=== PATIENT | female | born 1995 | race Caucasian/White ===

== ENCOUNTER 2017-10-06 16:06 | Emergency (ER) | payer OTHER, MEDICAID, SELFPAY ==
[2017-10-06 16:08] VITALS: BP 156/86; PULSE 86; PULSE 88; RESP 17; RESP 18; TEMP 36.4; O2SAT 97; O2SAT 98; BMI 28.3
--- NOTE | 2017-10-06 16:21 | US_ITS ---
STUDY: ULTRASOUND TRANSVAGINAL CLINICAL: Female, 21 years old. Abdominal and pelvic pain TECHNIQUE: Transvaginal COMPARISON: None. FINDINGS: Normal uterine size measuring 8.3 x 4.6 x 3.8 cm in maximal craniocaudal dimension. There are no myometrial masses. Normal endometrial thickness measuring 5.5 mm. There are no endometrial masses, and there is no fluid in the endometrial cavity. Normal uterine cervix. Normal right ovary, measuring 2.6 x 1.6 x 2.0 cm. There are multiple follicles without a dominant cyst. Normal left ovary, measuring 1.6 x 1.9 x 1.5 cm. There are multiple follicles without a dominant cyst. There is no free fluid in the pelvis. Polycystic ovary disease: No. US/Transvaginal Non- IMPRESSION: Normal appearance of the uterus and ovaries. Electronically Signed: Jered Herndon DO at 17:34 EDT Tel , Service support ,
--- NOTE | 2017-10-06 16:24 | ED.VISSUMM ---
- ER Visit Summary Date of Service: 10/06/17 Chief Complaint: Vaginal bleeding History of Present Illness: The patient is a 21 F presents with vaginal bleeding which started this afternoon. She states she has not had a period in 2 months. She has been nauseated with no vomiting. She is . She took a home test that was negative. She states she passed clots and what she believed to be tissue and was concerned that she was having a miscarriage. Denies other complaints. Physical Examination: Vitals are stable. Patient is afebrile. Alert no acute distress. HEENT exam is unremarkable. Neck is supple. Lungs are clear and equal bilaterally. Heart is regular rate and rhythm. Abdomen is soft nontender nondistended. No guarding or rebound Pelvic: Small amount of blood in vaginal vault. Cervix is closed. No adnexal tenderness Extremities are unremarkable. Skin is warm and dry. No focal neurologic deficit. Remainder of exam is unremarkable. Emergency Department Course and Treatment: HCG quant less than 1. Blood type O+. Pelvic ultrasound shows normal appearance of the uterus and ovaries. Patient is advised to follow-up with her [facility]. Advised return to ED for worsening complaints. Disposition: Discharge home Impression: Irregular vaginal bleeding This note was generated with [employer] dictation software. It may contain incorrect words, spelling, and punctuation that were not noted in review of the chart prior to signing ED Disposition - Plan for ED Patient: Chief Complaint: Vag Bleeding Instructions: ED Bleed Irregular Vaginal Referrals: Tucker Majano DO [Primary Care Provider] -
[2017-10-06 17:01] LABS: hCG Titer Quant., Serum < 1 mIU/mL (<9 non-preg)
--- NOTE | 2017-10-06 17:59 | ED.DEP ---
ED Disposition - Plan for ED Patient: Chief Complaint: Vag Bleeding Instructions: ED Bleed Irregular Vaginal Referrals: Tucker Majano DO [Primary Care Provider] -
[2017-10-06 18:26] VITALS: BP 110/63; PULSE 72; RESP 18; O2SAT 99
== END 2017-10-06 18:27 | disposition home or self-care (01) ==
LOC: ED 17:09
PROVIDERS: Emergency Provider Emergency Medicine; Family Provider Student in an Organized Health Care Education/Training Program; PCP Student in an Organized Health Care Education/Training Program
DX: N93.9 Abnormal uterine and vaginal bleeding, unspecified (principal)
CPT/HCPCS: 76830; 84702; 86900; 86901; 93976; 99282; A4216

== ENCOUNTER → 2017-12-08 15:08 | Outpatient (CLI) | payer MEDICAID, SELFPAY ==
[2017-12-08 16:30] LABS: hCG Titer Quant., Serum 800 mIU/mL (<9 non-preg)
[2017-12-08 17:32] LABS: Chlamydia Trachomatis by PCR Negative (Negative); Neisserai gonorrhoeae by PCR Negative (Negative); Probe Check PASS; Sample Adequacy Control PASS; Specimen Processing Control PASS
[2017-12-21 13:28] LABS: HPV Reflexed? NOT INDICATED
== END ==
PROVIDERS: Visit Provider Obstetrics & Gynecology
DX: Z32.01 Encounter for pregnancy test, result positive (principal); Z12.4 Encounter for screening for malignant neoplasm of cervix; Z11.3 Encounter for screening for infections with a predominantly sexual mode of transmission
CPT/HCPCS: 36415; 84702; 87491; 87591; 88175; G0145

== ENCOUNTER → 2017-12-11 15:30 | Outpatient (CLI) | payer MEDICAID, SELFPAY ==
--- NOTE | 2017-12-11 15:30 | DT_ITS ---
This patient was seen during an EMR downtime December 11, 2017 - December 18, 2017. This patient may have a combination of paper and electronic documentation or all paper documentation. All documentation is viewable within the e-chart portion of [facility] for each patient visit.
[2017-12-17 03:06] LABS: hCG Titer Quant., Serum 2478 mIU/mL (<9 non-preg)
== END ==
PROVIDERS: Family Provider Student in an Organized Health Care Education/Training Program; PCP Student in an Organized Health Care Education/Training Program; Visit Provider Obstetrics & Gynecology
DX: Z32.01 Encounter for pregnancy test, result positive (principal)
CPT/HCPCS: 36415; 84702

== ENCOUNTER → 2017-12-26 16:17 | Outpatient (CLI) | payer MEDICAID, SELFPAY ==
[2017-12-26 17:18] LABS: Color, Urine Yellow (Yellow); Glucose, Dipstick Normal (Normal); Ketone-Dipstick Negative (Negative); Leukocyte Esterase-Dipstick 25 /ul (Negative); Nitrite-Dipstick Negative (Negative); Occult Blood-Urine 25 /ul (Negative); Protein-Dipstick Negative (Negative); Specific Gravity, Urine 1.025 (1.002-1.030); Urine Bilirubin Dipstick Negative (Negative); Urine Clarity Clear (Clear); Urine Urobilinogen Normal (Normal)
[2017-12-26 17:19] LABS: Absolute Lymphocyte Count 1.97 X10^3/ul (0.83-4.51); Absolute Neutrophil Count 8.6 X10^3/uL (2.0-7.7); Basophil# 0.02 X10^3/uL; Basophil% 0.2 % (0-1); Eosinophil# 0.05 X10^3/uL; Eosinophils% 0.4 % (0-5); Hematocrit 37.7 % (37-47); Hemoglobin 12.6 g/dl (12.0-15.0); Lymphocyte # 1.97 X10^3/ul (4.0); Lymphocyte % 16.9 % (19-41); Mean Corp Hgb Conc 33.4 g/gl (32-36); Mean Corpuscular Hgb 29.8 pg (27.0-32.0); Mean Corpuscular Volume 89.1 fL (81-99); Mean Platelet Vol. 9.9 fl (6.2-12.0); Monocyte# 1.01 X10^3/uL; Monocyte% 8.7 % (0-10); Neutrophil # 8.59 X10^3/uL (2.7-7.7); Neutrophil % 73.6 % (47-70); Platelet Count 290 K/mm3 (150-450); RBC Distribution Width CV 12.5 % (11.6-14.6); Red Blood Count 4.23 M/mm3 (4.2-5.4); White Blood Count 11.7 K/mm3 (4.4-11.0)
[2017-12-26 17:20] LABS: POSITIVE COUNT NO; POSITIVE DIFFERENTIAL NO; POSITIVE MORPHOLOGY NO
[2017-12-26 17:39] LABS: Amphetamine Urine VISTA NEGATIVE (<1000 ng/mL); Barbiturate Urine VISTA NEGATIVE (< 200 ng/mL); Benzodiazepine Urine VISTA NEGATIVE (< 200 ng/mL); Cocaine Urine VISTA NEGATIVE (< 300 ng/mL); Ecstacy Urine VISTA NEGATIVE (< 500 ng/mL); Methadone Urine VISTA NEGATIVE (< 300 ng/mL); PCP Urine VISTA NEGATIVE (< 25 ng/mL); THC Urine VISTA NEGATIVE (< 50 ng/mL); Vista UDS pH Range 6
[2017-12-26 17:43] LABS: COTININE Drug Screen Negative (<200 ng/mL)
[2017-12-26 18:02] LABS: Thyroid Stim Hormone (TSH) 0.71 uIU/mL (0.358-3.74)
[2017-12-27 09:49] LABS: HIV - WCH Non-Reactive (Nonreactive); Rubella IgG 73.7 IU/mL
[2017-12-29 03:47] LABS: Prenatal RPR NONREACTIVE (NONREACTIVE)
[2017-12-29 11:23] LABS: HEPATITIS B SURFACE AG Negative (Negative); Hep C Antibodies <0.1 s/co ratio (0.0-0.9); V-Zoster IgG (Immunity) 1273 index (Immune >165)
== END ==
PROVIDERS: Visit Provider Obstetrics & Gynecology
DX: Z34.81 Encounter for supervision of other normal pregnancy, first trimester (principal)
CPT/HCPCS: 36415; 80307; 81002; 84443; 85025; 86703; 86762; 86787; 86803; 87340

== ENCOUNTER → 2018-01-30 18:31 | Outpatient (CLI) | payer OTHER, MEDICAID, SELFPAY | PROVIDERS: Family Provider Student in an Organized Health Care Education/Training Program; Visit Provider Obstetrics & Gynecology | DX: N39.0 Urinary tract infection, site not specified (principal) | CPT/HCPCS: 87086; 87088; 87186 ==

== ENCOUNTER → 2018-07-19 11:56 | Outpatient (CLI) | payer OTHER, MEDICAID, SELFPAY | PROVIDERS: Family Provider Student in an Organized Health Care Education/Training Program; PCP Student in an Organized Health Care Education/Training Program; Visit Provider Obstetrics & Gynecology | DX: Z36.85 Encounter for antenatal screening for Streptococcus B (principal) | CPT/HCPCS: 87081 ==

== ENCOUNTER 2018-08-06 10:00 | Inpatient (IN) | payer OTHER, MEDICAID, SELFPAY ==
[2018-08-06] VITALS (19 sets, daily range): BP systolic 96–122; BP diastolic 45–71; PULSE 54–77; RESP 12–18; TEMP 36.1–37; O2SAT 97–100; BMI 34.2
[2018-08-06] MEDS: Lactated Ringers 1,000 ML 999 ML IV (10:30)
[2018-08-06 10:50] LABS: Absolute Lymphocyte Count 1.94 X10^3/ul (0.83-4.51); Absolute Neutrophil Count 7.4 X10^3/uL (2.0-7.7); Basophil# 0.01 X10^3/uL; Basophil% 0.1 % (0-1); Eosinophil# 0.07 X10^3/uL; Eosinophils% 0.7 % (0-5); Hematocrit 35.8 % (37-47); Hemoglobin 11.5 g/dl (12.0-15.0); Lymphocyte # 1.94 X10^3/ul (4.0); Lymphocyte % 18.7 % (19-41); Mean Corp Hgb Conc 32.1 g/gl (32-36); Mean Corpuscular Hgb 30.4 pg (27.0-32.0); Mean Corpuscular Volume 94.7 fL (81-99); Mean Platelet Vol. 10.1 fl (6.2-12.0); Monocyte# 0.92 X10^3/uL; Monocyte% 8.9 % (0-10); Neutrophil # 7.39 X10^3/uL (2.7-7.7); Neutrophil % 71.2 % (47-70); Platelet Count 216 K/mm3 (150-450); RBC Distribution Width CV 15.1 % (11.6-14.6); RBC Distribution Width SD 52.3 fl (35.1-43.9); Red Blood Count 3.78 M/mm3 (4.2-5.4); White Blood Count 10.4 K/mm3 (4.4-11.0)
[2018-08-06 10:51] LABS: POSITIVE COUNT NO; POSITIVE DIFFERENTIAL NO; POSITIVE MORPHOLOGY NO
[2018-08-06 11:02] LABS: Prothrombin Time (Protime)PT. 12.9 SECONDS (11.7-14.9)
[2018-08-06 11:03] LABS: Partial Thromboplast Time 29.1 Seconds (24.1-36.2)
--- NOTE | 2018-08-06 11:53 | OP.PCM_ITS ---
Delivery Classification: Scheduled Final ELIZABETH: 08/13/18 Final ELIZABETH Source: US <20 weeks Gestational age: 39 Weeks and 1 Days Indications for : Repeat Elective Description of Procedure: Delivery of a live female weighing [id number]. kiwi was used to assist delivery. Normal appearing uterus, ovaries, and fallopian tubes. Amniotic fluid clear. Placenta appeared normal. Minimal scarring. Amniotic Membrane Rupture Type: Artificial Amniotic Fluid Description: Clear Placenta Disposition: [facility] Specimen(s) sent to pathology: cord blood Drain: Reyna to straight drain Fluids Replaced: 1000cc LR Cord Entanglement: None Nuchal Cord Compression: Without compression Cord Vessel Description: 3 Vessels Esitmated Blood Loss (ml): 400cc Infant Gender: Female (1 minute): 9 (5 minute): 9 Delayed cord clamping: Yes Pre-op Antibiotic Given: Ancef 2 grams IV x1 Pt instructed on risks of surgery: Bleeding, Infection, Need for Future C- Sections, Injury to surrounding structure(s) including bowel and bladder Complications: None - Admit VTE Documentation VTE Present on Admission: No VTE Mechan Device Prophylaxis: SCD's VTE Pharm Prophylaxis ordered?: No
[2018-08-06] MEDS: Sodium Citrate/Citric Acid 30 ML UDC PO (11:55)
--- NOTE | 2018-08-06 11:55 | OP.PCM_ITS ---
Report of Operation Date of Procedure: 08/06/18 Pre-Operative Diagnosis: Previous Section at 39 weeks EGA Post-Operative Diagnosis: Same Surgery/Procedure Performed:: Repeat Low Transverse Section Description of Surgical Findings:: Delivery of live female weighing [id number]. Apgars 9/9. Placenta appeared normal. Amniotic fluid clear. Normal appearing uterus, ovaries, and fallopian tubes. Minimal scarring. Lower uterine segment noted to be extremely thin. Type of Anesthesia:: Spinal Anesthesiologist: Dm Sy Special Medications: none Specimen's removed: cord blood Drains: reis to SD Estimated Blood Loss (mL): 400cc Fluids Replaced: 1000cc LR Description of Procedure: Meghann was taklen to the OR with IV running. SHe was given two grams of Cefotetan intravenously for surgical prophylaxis. SPinal anesthesia was introduced without complication. A reis catheter was then placed. She was then prepped and draped in the supine position with a leftward tilt. Anesthesia was checked and found to be adequate. A Pfannensteil skin incision was then made over the previous lower abdominal scar. The underlying subcutaneous tissue was dissected sharply down to the level of the fascia. The fascia was then incised horizontally in the midline. This incision was extended bilaterally with the Daley scissors. The upper portion of the fascial defect was then grasped with two Denisse clamps, elevated, and the rectus muscles were dissected off with blunt and sharp dissection. In a similar fashion the fascia was dissected off the lower portion of the fascial defect. The rectus muscles were then in the midline, the peritoneum identified and entered sharply. The peritoneal defect was enlarged with blunt retraction. A bladder blade was then placed. A bladder flap was then created and the bladder blade replaced. The lower uterine segment was then incised in a transverse fashion. Once the cavity was entered the uterine defect was enlarged using blunt lateral and superior traction. The membranes were then ruptured. The baby's head was then brought to the incision a Kiwi device placed and using gentle traction the head was delivered followed by the body. Delayed cord clamping was employed. The baby was dried and the mouth suctioned with a bulb suction. There was an active cry shortly after delivery. The cord was then clamped and cut and the baby handed off to the waiting nurse for evaluation. The placenta was delivered manually. The uterus was exteriorized and cleared of all clot and membranes. The uterine defect was repaired in two layers with #1 Vicryl. The posterior cul de sac and gutters were cleared of all clot and fluid. The uterus was returned to the abdomen, the uterine incision was inspected and found to be hemostatic. The peritoneum was closed with a running stitch of 2-0 vicryl. The rectus muscles were reapproximated with interrupted sutures of 0-Vicryl. The fascia was closed with a running stitch of #1 Stratofix suture. The subcut aneous tissue was closed with a runing stitch of 2-0 Vicryl. The skin was closed with a subcuticular stitch of 4-0 Monocryl. Sponge, lap, needle, and sintrument counts were correct. SHe was taken to her recovery room in stable condition. Grafts/Implants Used: none - Complications none - Admit VTE Documentation VTE Present on Admission: No VTE Mechan Device Prophylaxis: SCD's VTE Pharm Prophylaxis ordered?: No
[2018-08-06] MEDS: Cefazolin 2 GM in 0.9% Normal Saline 100 ML IV (12:07)
[2018-08-06] MEDS: Lactated Ringers 1,000 ML 150 ML IV (12:20)
[2018-08-06] MEDS: Oxytocin 30 units/NS 500 ml 30 UNITS/500 ML IV.SOLN 167 UNITS IV (12:25)
[2018-08-06] MEDS: Ondansetron 4 MG/2 ML Vial IV (12:35)
[2018-08-06] MEDS: Ketorolac 30 MG/ML Syringe IV ×3 (12:45→23:50)
[2018-08-06] MEDS: Lactated Ringers 1,000 ML 100 ML IV ×2 (13:15→17:49)
[2018-08-06] MEDS: Nalbuphine 10 MG/ML Ampul 5 MG IV (14:20)
[2018-08-06] MEDS: Ferrous Gluconate 324 MG Tablet PO (17:49)
[2018-08-06] MEDS: Naloxone 0.4 MG/ML Syringe 0.2 MG IV ×2 (18:27→20:44)
[2018-08-06] MEDS: Cefazolin 1 GM/50 ML BAG IV (19:47)
--- NOTE | 2018-08-06 20:00 | NURSING ---
2000: Patient's pulse ox alarm went off. RN entered room and patient was awake with O2 sat at 100% on room air. Patient's family stated she had fallen asleep when alarm went off and that O2 sat read 70%. 2L of of oxygen applied via nasal cunnula. 2019: Patient asleep and pulse ox 100% on 2L, respirations 16 while asleep.
[2018-08-07] VITALS (10 sets, daily range): BP systolic 96–122; BP diastolic 49–70; PULSE 58–80; RESP 15–18; TEMP 36.2–36.7; O2SAT 97–100
--- NOTE | 2018-08-07 01:43 | NURSING ---
Patient passed clot approximately the size of a flat tennis ball. No other bleeding or trickling at this time. Fundus remains firm and -2. Patient asymptomatic, will continue to monitor.
[2018-08-07] MEDS: Cefazolin 1 GM/50 ML BAG IV (03:23)
[2018-08-07] MEDS: Lactated Ringers 1,000 ML 100 ML IV (03:24)
[2018-08-07] MEDS: Ketorolac 30 MG/ML Syringe IV ×4 (05:25→23:55)
[2018-08-07 05:44] LABS: Hematocrit 32.3 % (37-47); Hemoglobin 10.6 g/dl (12.0-15.0); Mean Corp Hgb Conc 32.8 g/gl (32-36); Mean Corpuscular Hgb 31.4 pg (27.0-32.0); Mean Corpuscular Volume 95.6 fL (81-99); Platelet Count 204 K/mm3 (150-450); RBC Distribution Width CV 14.8 % (11.6-14.6); RBC Distribution Width SD 48.2 fl (35.1-43.9); Red Blood Count 3.38 M/mm3 (4.2-5.4); White Blood Count 9.7 K/mm3 (4.4-11.0)
[2018-08-07 05:53] LABS: Scan Indicated on CBC? Y/N NO
[2018-08-07] MEDS: Ferrous Gluconate 324 MG Tablet PO ×2 (09:35→17:56)
--- NOTE | 2018-08-07 09:42 | DCINST_ITS ---
Discharge Diet: No Restrictions Discharge Activity: Return to Normal Activity, May Not Drive, May not drive while taking narcotic pain medications., May Shower Return to work on:: 10/05/18 May shower in (days): 0 May resume sexual activity in: 4-6 weeks Call your doctor if your incision/area has: Sudden Increased Bleeding, Increased Pain/ Swelling, Increased Redness, Foul Smelling Discharge, Swelling at the incision site Call your doctor if you observe: Fever of 101 or Higher, Inability to urinate, Inability to have a bowel movement, Using more than one pad per hour, Shortness of breath, Chest pain, Calf discomfort, Uncontrolled pain Remove Dressing in (days):: 3 Cleanse incision/area with: Soap & Water Additional Instructions: If you experience any of the following, contact your healthcare provider. * Bleeding that soaks a pad every hour for 2 hours * Fever 100.4 or higher * Unrelieved incision or abdominal pain * Swelling, redness, discharge or bleeding from your incision or episiotomy site * Your incision begins to separate * Problems urinating (including inability to urinate or burning while uri nating). * Visual changes * Severe headache * Flu-like symptoms * Pain or redness in one of both of your breasts * Pain, warmth, tenderness or swelling in your legs, especially the calf area * Frequent nausea and vomiting * Symptoms of depression or anxiety If you experience any of the following, call 911 or go to the nearest Emergency Room. * Chest pain * Problems breathing * Seizure activity * Partial or complete paralysis of a body part, slurred speech, weakness or drooping of the face, or a sudden inability to walk or hold your balance Allergies/Adverse Reactions: Allergies sulfamethoxazole [From Bactrim] Allergy (Verified 08/06/18 10:18) Rash trimethoprim [From Bactrim] Allergy (Verified 08/06/18 10:18) Rash Medications to take at Discharge Ferrous Gluconate 325 mg PO BIDCM 08/06/18 Pantoprazole Sodium [Protonix] 40 mg PO DAILY 08/06/18 Vit No.130/Iron/Folic [ Tablet] 1 each PO 08/06/18 Ibuprofen [Motrin] 600 mg PO Q6H PRN PRN #30 tab 08/07/18 Oxycodone [Oxyir] 5 - 10 mg PO Q4H PRN PRN 7 Days #28 tab 08/07/18 The following prescriptions were given: Oxycodone [Oxyir] 5 - 10 mg PO Q4H PRN PRN 7 Days #28 tab PRN Reason: Mod-Severe Pain (-04/18) Ibuprofen [Motrin] 600 mg PO Q6H PRN PRN #30 tab PRN Reason: pain or cramping Follow-Up: Call to make an appointment with your doctor for an incision check in 1-2 weeks. You will also need a 6 week post- follow up appointment. Test results from this visit will be discussed in further detail at your follow- up appointment, if applicable. Please Follow Up With: Pawel Figueroa MD When: 2 weeks Primary Care Physician: Tucker Majano DO [Primary Care Provider] - Proposed Discharge Date: 08/08/18
--- NOTE | 2018-08-07 09:54 | PCM.PN.OB ---
Subjective: No specific complaints. Bleeding light. Pain well controlled. Objective: Afeb VSS Urine output appropriate. Hgb stable - Physical Exam General: Alert, Oriented x3, Cooperative, No apparent distress Lungs: Clear to auscultation, Normal air movement Cardiovascular: Regular rate, Regular Rhythm Abdomen: Soft, Non Tender, Non-Distended, - - Fundus firm, incision dressing dry Extremities: No edema Skin: No rashes Neurological: Neuro grossly intact Psych/Mental Status: Normal Affect Comment: Lochia appropriate Vital Signs Temp Pulse Resp BP Pulse Ox 97.1 F L 66 15 106/51 L 100 08/07/18 09:28 08/07/18 09:28 08/07/18 09:28 08/07/18 09:28 08/07/18 07:28 Oxygen Flow Rate (L/min) 2 Oxygen Delivery Method Room Air Weight: 212 lb Body Mass Index (BMI) 34.2 Intake and Output for Last 24 Hours 08/05/18 08/06/18 08/07/18 23:59 23:59 23:59 Intake Total 5300 / 5300 1200 / 1200 Output Total 2125 / 2125 1500 / 1500 Balance 3175 / 3175 -300 / -300 Laboratory Tests Past 24 Hrs 08/06/18 08/06/18 08/06/18 10:30 10:30 10:30 WBC 10.4 RBC 3.78 L Hgb 11.5 L Hct 35.8 L MCV 94.7 MCH 30.4 MCHC 32.1 RDW 15.1 H RDW Differential 52.3 H Plt Count 216 MPV 10.1 Immature Gran % (Auto) 0.400 Neut % (Auto) 71.2 H Lymph % (Auto) 18.7 L [place] % (Auto) 8.9 Eos % (Auto) 0.7 Baso % (Auto) 0.1 Absolute Neuts (auto) 7.4 Absolute Lymphs (auto) 1.94 Total Counted Not Reportable PT 12.9 INR 1.0 APTT 29.1 Blood Type O POSITIVE Antibody Screen NEGATIVE 08/07/18 05:30 WBC 9.7 RBC 3.38 L Hgb 10.6 L Hct 32.3 L MCV 95.6 MCH 31.4 MCHC 32.8 RDW 14.8 H RDW Differential 48.2 H Plt Count 204 MPV 10.0 Immature Gran % (Auto) Neut % (Auto) Lymph % (Auto) [place] % (Auto) Eos % (Auto) Baso % (Auto) Absolute Neuts (auto) Absolute Lymphs (auto) Total Counted PT INR APTT Blood Type Antibody Screen Medical Necessity - Tobacco Use Smoking Status: Never smoker Assessment/Plan Doing well on POD#1. Continue routine PO care. Removed reis catheter at noon.
[2018-08-07] MEDS: Prenatal Vits Tablet 1 TABLET PO (11:53)
[2018-08-07] MEDS: Senna/Docusate Sodium 1 Tablet PO (14:54)
[2018-08-07] MEDS: oxyCODONE 5 MG Tablet PO (14:55)
[2018-08-07] MEDS: 0.9% Saline Lock 10 ML Syringe IV ×3 (17:57→23:55)
[2018-08-08] MEDS: oxyCODONE 5 MG Tablet PO ×3 (02:50→22:25)
[2018-08-08 02:52] VITALS: BP 99/52; PULSE 76; RESP 18; TEMP 36.2; O2SAT 95
[2018-08-08] MEDS: Ketorolac 30 MG/ML Syringe IV (06:10)
[2018-08-08] MEDS: 0.9% Saline Lock 10 ML Syringe IV (06:10)
[2018-08-08] MEDS: Senna/Docusate Sodium 1 Tablet PO (06:10)
--- NOTE | 2018-08-08 08:27 | PCM.PN.OB ---
Subjective: No specific complaints. Pain well controlled with PO medications. Bleeding light. Breast feeding. Objective: AFeb VSS - Physical Exam General: Alert, Oriented x3, Cooperative, No apparent distress Lungs: Clear to auscultation, Normal air movement Cardiovascular: Regular rate, Regular Rhythm Abdomen: Soft, Non Tender, Non-Distended, - - Fundus firm nontender, Incision dressing dry. Extremities: No edema Neurological: Neuro grossly intact Psych/Mental Status: Normal Affect Comment: Lochia light Vital Signs Temp Pulse Resp BP Pulse Ox 97.2 F L 76 18 99/52 L 95 08/08/18 02:52 08/08/18 02:52 08/08/18 02:52 08/08/18 02:52 08/08/18 02:52 Oxygen Flow Rate (L/min) 2 Oxygen Delivery Method Room Air Weight: 212 lb Body Mass Index (BMI) 34.2 Intake and Output for Last 24 Hours 08/06/18 08/07/18 08/08/18 23:59 23:59 23:59 Intake Total 5300 / 5300 2693 / 2693 Output Total 2125 / 2125 2800 / 2800 Balance 3175 / 3175 -107 / -107 Medical Necessity - Tobacco Use Smoking Status: Never smoker Assessment/Plan Doing well on POD#2. Continue routine PO care. Baby currently under UV lights for elevated bilirubin. Will consider discharge home if baby's bilirubin levels improve.
[2018-08-08 09:10] VITALS: BP 106/61; PULSE 85; RESP 20; TEMP 36.6; O2SAT 95
[2018-08-08] MEDS: Pantoprazole Sodium 40 MG Tablet PO (09:41)
[2018-08-08] MEDS: Ferrous Gluconate 324 MG Tablet PO ×2 (09:41→16:58)
[2018-08-08] MEDS: Ibuprofen 600 MG Tablet PO ×2 (11:10→20:15)
[2018-08-08] MEDS: Prenatal Vits Tablet 1 TABLET PO (12:44)
[2018-08-08 14:15] VITALS: BP 120/69; PULSE 86; TEMP 36.6; O2SAT 97
[2018-08-08 20:15] VITALS: BP 128/69; PULSE 79; RESP 16; TEMP 36.6; O2SAT 97
[2018-08-09 02:18] VITALS: BP 111/60; PULSE 61; RESP 16; TEMP 37; O2SAT 97
[2018-08-09 08:20] VITALS: BP 112/68; PULSE 69; RESP 16; TEMP 36.4
--- NOTE | 2018-08-09 08:27 | PCM.PN.OB ---
Subjective: No specific complaints. Pain reasonably controlled. Bleeding light. Breast feeding. Objective: Afeb VSS - Physical Exam General: Alert, Oriented x3, Cooperative, No apparent distress Lungs: Clear to auscultation, Normal air movement Cardiovascular: Regular rate, Regular Rhythm Abdomen: Soft, Non Tender, Non-Distended, - - Incision dressing dry Extremities: No edema Skin: No rashes Neurological: Neuro grossly intact Psych/Mental Status: Normal Affect Comment: Lochia light Vital Signs Temp Pulse Resp BP Pulse Ox 98.6 F 61 16 111/60 97 08/09/18 02:18 08/09/18 02:18 08/09/18 02:18 08/09/18 02:18 08/09/18 02:18 Oxygen Flow Rate (L/min) 2 Oxygen Delivery Method Room Air Weight: 212 lb Body Mass Index (BMI) 34.2 Intake and Output for Last 24 Hours 08/07/18 08/08/18 08/09/18 23:59 23:59 23:59 Intake Total 2693 / 2693 Output Total 2800 / 2800 Balance -107 / -107 Medical Necessity - Tobacco Use Smoking Status: Never smoker Assessment/Plan Doing well on POD#3/ Cleared for discharge home today. Home going instructions and warnings given.
--- NOTE | 2018-08-09 08:29 | PCM.DC.SUM ---
Discharge Date and Diagnosis Date of Admission: 08/06/18 Date of Discharge: 08/09/18 - Primary Discharge Diagnosis s/p repeat LTCS Hospital Course and Treatment Operations: - - LTCS Summary of Care Provided: The patient is a 22 year old F [admitted at 39 weeks for scheduled repeat LTCS. This was performed without complication with delivery of a live female without complication. Post operative course was unremarkable. Discharged home on POD#3.] - Physical Exam Vital Signs Temp Pulse Resp BP Pulse Ox 98.6 F 61 16 111/60 97 08/09/18 02:18 08/09/18 02:18 08/09/18 02:18 08/09/18 02:18 08/09/18 02:18 Oxygen Flow Rate (L/min) 2 Oxygen Delivery Method Room Air Weight: 212 lb Body Mass Index (BMI) 34.2 Intake and Output for Last 24 Hours 08/07/18 08/08/18 08/09/18 23:59 23:59 23:59 Intake Total 2693 / 2693 Output Total 2800 / 2800 Balance -107 / -107 Discharge Diet: No Restrictions Discharge Activity: Return to Normal Activity, May Not Drive, May not drive while taking narcotic pain medications., May Shower Return to work on:: 10/05/18 May shower in (days): 0 May resume sexual activity in: 4-6 weeks Call your doctor if your incision/area has: Sudden Increased Bleeding, Increased Pain/ Swelling, Increased Redness, Foul Smelling Discharge, Swelling at the incision site Call your doctor if you observe: Fever of 101 or Higher, Inability to urinate, Inability to have a bowel movement, Using more than one pad per hour, Shortness of breath, Chest pain, Calf discomfort, Uncontrolled pain Remove Dressing in (days):: 3 Cleanse incision/area with: Soap & Water Home Medications: Medications to take at Discharge Ferrous Gluconate 325 mg PO BIDCM 08/06/18 Pantoprazole Sodium [Protonix] 40 mg PO DAILY 08/06/18 Vit No.130/Iron/Folic [ Tablet] 1 each PO 08/06/18 Ibuprofen [Motrin] 600 mg PO Q6H PRN PRN #30 tab 08/07/18 Oxycodone [Oxyir] 5 - 10 mg PO Q4H PRN PRN 7 Days #28 tab 08/07/18 Following Prescrptions Were Given to Patient: Oxycodone [Oxyir] 5 - 10 mg PO Q4H PRN PRN 7 Days #28 tab PRN Reason: Mod-Severe Pain (-04/18) Ibuprofen [Motrin] 600 mg PO Q6H PRN PRN #30 tab PRN Reason: pain or cramping Primary Care Physician: Tucker Majano DO [Primary Care Provider] - Please Follow Up With: Pawel Figueroa MD When: 2 weeks Disposition: Home Minutes spent on discharge:: 15 Patient Condition:: Good Medical Necessity - Tobacco Use Smoking Status: Never smoker Meaningful Use Info Meaningful Use Diagnoses (Choose all that apply): None applicable
[2018-08-09] MEDS: Acetaminophen 500 MG Tablet 1000 MG PO (10:33)
[2018-08-09] MEDS: Senna/Docusate Sodium 1 Tablet PO (10:34)
[2018-08-09] MEDS: Prenatal Vits Tablet 1 TABLET PO (10:34)
[2018-08-09] MEDS: Pantoprazole Sodium 40 MG Tablet PO (10:34)
[2018-08-09] MEDS: Ferrous Gluconate 324 MG Tablet PO (10:34)
[2018-08-09] MEDS: oxyCODONE 5 MG Tablet PO (12:32)
== END 2018-08-09 13:10 | disposition home or self-care (01) | DRG 788 ==
PROVIDERS: Admitting Provider Obstetrics & Gynecology; Family Provider Student in an Organized Health Care Education/Training Program; PCP Student in an Organized Health Care Education/Training Program; Referring Provider Obstetrics & Gynecology; Visit Provider Obstetrics & Gynecology
PROC: 10D00Z1 Extraction of Products of Conception, Low, Open Approach (ICD-10-PCS; CPT 59514; principal; 2018-08-06 11:45)
DX: O34.211 Maternal care for low transverse scar from previous cesarean delivery (principal); N85.8 Other specified noninflammatory disorders of uterus; Z3A.39 39 weeks gestation of pregnancy; Z37.0 Single live birth
CPT/HCPCS: 85025; 85027; 85610; 85730; 86850; 86900; 99218; J7120; A4216; G0378; J2310; J2405

== ENCOUNTER → 2018-09-21 16:05 | Outpatient (CLI) | payer OTHER, MEDICAID, SELFPAY ==
[2018-08-06 10:18] VITALS: BMI 34.2
[2018-09-21 17:54] LABS: Chlamydia Trachomatis by PCR Negative (Negative); Neisserai gonorrhoeae by PCR Negative (Negative); Probe Check PASS; Sample Adequacy Control PASS; Specimen Processing Control PASS
== END ==
PROVIDERS: Family Provider Student in an Organized Health Care Education/Training Program; PCP Student in an Organized Health Care Education/Training Program; Visit Provider Obstetrics & Gynecology
DX: Z11.3 Encounter for screening for infections with a predominantly sexual mode of transmission (principal)
CPT/HCPCS: 87491; 87591

== ENCOUNTER → 2020-12-28 12:05 | Outpatient (CLI) | payer OTHER, SELFPAY ==
[2020-12-28 13:57] LABS: Hemoglobin A1c 5.2 % (3.8-5.6); Vitamin D,25 Hydroxy 20.6 ng/mL
[2020-12-28 14:01] LABS: Estradiol 31.9 pg/mL; Follicle Stimulating Hormone 5.7 mIU/mL; Luteinizing Hormone 3.6 mIU/mL; Prolactin 3.8 ng/mL; T4 Free Direct 1.08 ng/dL (0.76-1.46); Thyroid Stim Hormone (TSH) 0.85 uIU/mL (0.358-3.74)
[2021-01-01 03:07] LABS: DHEA Sulfate 77.6 ug/dL (84.8-378.0); Testosterone Free 1.1 pg/mL (0.0-4.2)
[2021-01-02 08:35] LABS: Sex Hormone-binding Globulin 34.3 nmol/L (24.6-122.0)
== END ==
PROVIDERS: PCP Student in an Organized Health Care Education/Training Program; Visit Provider Student in an Organized Health Care Education/Training Program
DX: L68.0 Hirsutism (principal)
CPT/HCPCS: 36415; 82306; 82627; 82670; 83001; 83002; 83036; 84146; 84270; 84402; 84439; 84443; 82626